=== PATIENT | male | born 1990 | race Caucasian/White ===

== ENCOUNTER 2018-09-21 15:25 | Emergency (ER) | payer BC ==
[~2018-09-21] VITALS: Wt 90.0 kg
[2018-09-21 15:28] VITALS: BP 140/78; PULSE 90; RESP 18
--- NOTE | 2018-09-21 16:32 | ERD ---
ER Documentation Chief Complaint Chief Complaint 'genital problem" HPI 28-year-old male presenting to the ER for testicular pain. Patient states he first noticed symptoms last when he felt that his testicles were swollen. Patient states that he had some blood in his semen yesterday. Patient states that he is sexually active and his last sexual encounter was last Sunday. Patient patient is sexually active states he has one female partner but does not use protection. Patient denies any penile discharge, ulcerations or sores, difficulty urinating. Patient denies any past medical history and states he is not taking any medication. Patient states the pain is a 2 out of 10 ROS All systems reviewed and are negative except as per history of present illness. Medications Home Meds Active Scripts Ciprofloxacin Hcl* (Ciprofloxacin Hcl*) 500 Mg Tablet, 500 MG PO BID for 3 Days, TAB Prov:HERB ISBELL PA-C 09/21/18 Allergies Allergies: Coded Allergies: No Known Allergy (Unverified , 09/21/18) PMhx/Soc Medical and Surgical Hx: pt denies Medical Hx, pt denies Surgical Hx Hx Alcohol Use: No Hx Substance Use: No Smoking Status: Never smoker FmHx Family History: diabetes; No coronary disease, No other Physical Exam Vitals Vital Signs Date Temp Pulse Resp B/P (MAP) Pulse Ox O2 O2 Flow FiO2 Time Delivery Rate 09/21/18 98.1 90 18 140/78 99 15:28 (98) Physical Exam GENERAL: The patient is well-appearing, well-nourished, in no acute distress HEENT: Atraumatic. Conjunctivae are pink. Pupils equal, round, and reactive to light. There is no scleral icterus. Tympanic membranes clear bilaterally. Oropharynx clear. No nystagmus or photophobia. ABDOMEN:Soft, nontender and nondistended. Good bowel sounds. No rebound or guarding. No gross peritonitis. No gross organomegaly or masses. No Hinton sign or McBurney point tenderness. BACK: No midline or flank tenderness. : Patient's testicles were tender to palpation, no presence of penile discharge, no ulcerations or sores noted, patient's scrotum is tender to palpation, patient is circumcised and has no swelling to the shaft or head of his penis. Results 24 hrs Laboratory Tests Test 09/21/18 16:30 Urine Color DAHLIA Urine Clarity SLIGHTLY CLOUDY Urine pH 5.0 Urine Specific [place] 1.029 Urine Ketones NEGATIVE mg/dL Urine Nitrite NEGATIVE mg/dL Urine Bilirubin NEGATIVE mg/dL Urine Urobilinogen 2+ mg/dL Urine Leukocyte Esterase 1+ Shree/ul Urine Microscopic RBC 2 /HPF Urine Microscopic WBC 14 /HPF Urine Squamous Epithelial Cells FEW /HPF Urine Mucus MODERATE /HPF Urine Hemoglobin NEGATIVE mg/dL Urine Glucose NEGATIVE mg/dL Urine Total Protein NEGATIVE mg/dl Current Medications Medications Dose Sig/Nii Start Time Status Last (Trade) Ordered Route PRN Stop Time Admin Dose Reason Admin Ceftriaxone 250 mg ONCE ONCE 09/21/18 DC 09/21/18 Sodium IM 18:00 09/21/18 18:04 (Rocephin) 18:01 1,000 mg ONCE ONCE 09/21/18 DC 09/21/18 Azithromycin PO 18:00 09/21/18 18:04 (Zithromax) 18:01 Lidocaine 5 ml ONCE ONCE 09/21/18 DC 09/21/18 (Xylocaine INFIL 18:00 09/21/18 18:04 1% (Mpf)) 18:01 Procedures/MDM ED course: History physical exam UA Testicular ultrasound The patient was stable throughout the ED course. The patient and/or family informed of laboratory and diagnostic imaging results throughout the ED course. Diagnostic imaging: Read by radiologist Stone Dutta MD, MD PROCEDURE: US Scrotum. CLINICAL INDICATION: Pain. Rule out testicular torsion... TECHNIQUE: Multiple sonographic images of the scrotal region were obtained utilizing a linear array transducer with grayscale and color-flow and a Doppler imaging. The images were reviewed on a high-resolution PACS workstation. COMPARISON: No prior studies are available for comparison. FINDINGS: The right testicle is well visualized and has a normal echotexture. No focal areas of abnormal echogenicity are visualized. The right testicle measures measures 4.6 x 2.7 x 3.3 cm. There is normal color-flow. The right epididymis is visualized and unremarkable in appearance. There is normal color-flow. The left testicle is well visualized and has a normal echotexture. No focal areas abnormal echogenicity are visualized. The left testicle measures measures 3.5 x 2.8 x 4.1 cm. There is normal color-flow. The left epididymis is visualized and is unremarkable in appearance. There is normal color-flow. The scrotal wall is unremarkable. No swelling or edema is seen. Small hydroceles are present. There is no varicocele. IMPRESSION: 1. Unremarkable testicular ultrasound. No evidence of testicular torsion. . Medications given in ER: Ceftriaxone Azithromycin Lidocaine Patient tolerated medication well with no adverse reactions. Medical decision making: Patient is a 28-year-old female presenting with testicle pain since last . Patient states the pain has not improved. Patient is sexually active but is not using protection. Patient states he has one partner that is a female. Patient's physical exam was remarkable for tender scrotum during palpation. Patient has no penile discharge, ulcerations, open sores. Patient does state he has had some burning with urination associated with the testicular pain. An ultrasound was ordered to rule out testicular torsion. The ultrasound results came back unremarkable. Patient's UA indicated infection. The results were discussed with the patient and the treatment option was presented to the patient of being empirically treated for chlamydia and gonorrhea. Have low suspicion for pyelonephritis, nephrolithiasis, appendicitis, epididymitis, orchitis, balanitis, prostatitis, phimosis, priapism, penile contusion, incarcerated hernia or strangulated hernia. The patient wanted the empirical treatment for gonorrhea chlamydia. Patient was being sent home with a prescri ption for Cipro to treat UTI symptoms. The patient was advised to follow-up with his primary care provider in 1 to 2 days regarding this visit. Patient was advised to return if symptoms worsen. The patient had no further questions upon discharge and was advised side effects of medications. The patient was advised to return to the ER immediately if symptoms worsen. Prescription for home: Cipro Discharge: At this time, patient is stable for discharge and outpatient management. I have instructed the patient to follow-up with his\\her primary care physician in 1 to 2 days. I have discussed with the patient the possibility of needing to see a specialist for further work-up and imaging studies if symptoms persist. I have instructed the patient to promptly return to the ER for any new or worsening symptoms including increased pain, fever, nausea, vomiting, weakness or LOC. The patient and\\or family expressed understanding of and agreement with this plan. All questions were answered. Home care instructions were provided. Disclaimer: Inadvertent spelling and grammatical errors are likely due to EHR\\dictation software use and do not reflect on the overall quality of patient care. Also, please note that the electronic time recorded on the note does not necessarily reflect the actual time of the patient encounter. Departure Diagnosis: Primary Impression: Testicle swelling Condition: Stable HERB ISBELL PA-C Sep 21, 2018 16:32
[2018-09-21] MEDS ORDERED: CIPR500T4 PO (17:43)
[2018-09-21] MEDS ORDERED: LIDOCAINE 1% (MPF) 5 ML VIAL INFIL ONE (18:00)
[2018-09-21] MEDS ORDERED: AZITHROMYCIN 500 MG TAB PO ONE (18:00)
[2018-09-21] MEDS ORDERED: CEFTRIAXONE 250 MG INJ IM ONE (18:00)
== END 2018-09-21 18:10 | disposition home or self-care (01) ==
LOC: FTE 15:25
DX: N50.89 Other specified disorders of the male genital organs (principal)
CPT/HCPCS: 76870; 81001; 96372; 99285; J0696